=== PATIENT | female | born 1970 | race Caucasian/White ===

== ENCOUNTER 2019-07-12 09:31 | Observation (INO) ==
[2019-07-12] MEDS ORDERED: metroNIDAZOLE INJ 500 MG in PREMIX 1 EACH IV ONE (10:36)
[2019-07-12] MEDS ORDERED: LEVOFLOXACIN INJ 750 MG in PREMIX 1 EACH IV ONE (10:36)
[2019-07-12] MEDS ORDERED: ALBUTEROL/IPRATROPIUM 3 ML NEB RESP TX PRN (10:38)
[2019-07-12] MEDS ORDERED: ONDANSETRON 4 MG/2 ML VIAL IV PRN ×2 (10:38→13:07)
[2019-07-12] MEDS ORDERED: ACETAMINOPHEN 325 MG TABLET PO PRN (10:38)
[2019-07-12] MEDS ORDERED: PROMETHAZINE 25 MG/1 ML VIAL IM PRN (10:40)
[2019-07-12] MEDS ORDERED: diphenhydrAMINE 50 MG/1 ML VIAL IV PRN (10:40)
[2019-07-12 10:59] LABS: Basophils # 0.1 10*3/uL (0.0-0.2); Basophils % 0.5 % (0.0-0.8); Eosinophils # 0.1 10*3/uL (0.0-0.87); Hematocrit 40.4 VOL% (35.7-47.0); Hemoglobin 13.8 GM/DL (12.0-16.0); Immature Granulocytes % 0.4 %; Immature Granulocytes Absolute 0.05 #; Lymphocytes # 2.2 10*3/uL (1.4-4.0); Mean Corpuscular HGB Conc 34.2 GM/DL (32-36); Mean Corpuscular Volume 85.1 FL (87-102); Mean Platelet Volume 9.2 FL (9.6-12.0); Monocytes % 6.9 % (1.7-12.7); Neutrophils % 74.2 % (38.7-73.9); Platelet Count 387 T/CUMM (130-400); Red Blood Count 4.75 MC/CUMM (3.8-5.5); Red Cell Distribution Width 11.9 % (9.3-17.3)
[2019-07-12] MEDS ORDERED: LEVOFLOXACIN INJ 150 ML IV ONE (11:11)
[2019-07-12] MEDS ORDERED: DIAZEPAM 5 MG TABLET PO ONE (11:14)
[2019-07-12] MEDS ORDERED: FAMOTIDINE 20 MG TABLET PO ONE (11:14)
[2019-07-12] MEDS: LACTATED RINGERS 1,000 ML IV SCH ×3 (11:14→23:42)
[2019-07-12] MEDS ORDERED: SCOPOLAMINE 1.5 MG PATCH TRANSDERM ONE ×2 (11:14→11:20)
[2019-07-12] MEDS ORDERED: FAMOTIDINE 20 MG TABLET ONE (11:20)
[2019-07-12 11:21] LABS: Alanine Aminotransferase 19 U/L (13-56); Albumin 3.4 G/DL (3.4-5.0); Alkaline Phosphatase 78 U/L (45-117); Aspartate Amino Transferase 15 U/L (0-37); Bilirubin,Total < 0.39 MG/DL (0.2-1.0); Blood Urea Nitrogen 10 MG/DL (7-18); Estimated Glom Filtration Rate 84 ML/MIN; Glucose 88 MG/DL (74-106); Osmolality,Calculated 272.7 MOS/KG (273-304); Total Protein 8.1 G/DL (6.4-8.3)
[2019-07-12] MEDS ORDERED: DIAZEPAM 5 MG TABLET ONE (11:21)
[2019-07-12] MEDS ORDERED: propofoL 200 MG/20 ML VIAL IV ONE (12:34)
[2019-07-12] MEDS ORDERED: fentaNYL 100 MCG/2 ML VIAL ONE (12:34)
[2019-07-12] MEDS ORDERED: LIDOCAINE 2% 5 ML VIAL ONE (12:34)
[2019-07-12] MEDS ORDERED: SEVOFLURANE 1 UNIT/15 MINUTE INH ONE (12:34)
[2019-07-12] MEDS ORDERED: MIDAZOLAM 2 MG/2 ML VIAL ONE (12:34)
[2019-07-12] MEDS ORDERED: DEXAMETHASONE 4 MG/1 ML VIAL ONE (12:35)
[2019-07-12] MEDS ORDERED: ONDANSETRON 4 MG/2 ML VIAL ONE (12:35)
[2019-07-12] MEDS ORDERED: HYDROmorphone 2 MG/1 ML VIAL IV PRN (13:07)
[2019-07-12] MEDS: PIPERACILLIN/TAZOBACTAM 3,375 MG in SODIUM CHLORIDE 0.9% 100 ML IV SCH ×2 (14:06→23:40)
[2019-07-12] MEDS: DOCUSATE SODIUM 100 MG CAPSULE PO SCH (21:59)
[2019-07-13 05:25] LABS: Basophils % 0.2 % (0.0-0.8); Hematocrit 36.7 VOL% (35.7-47.0); Hemoglobin 12.3 GM/DL (12.0-16.0); Immature Granulocytes % 0.5 %; Immature Granulocytes Absolute 0.07 #; Lymphocytes # 1.4 10*3/uL (1.4-4.0); Lymphocytes % 9.3 % (21.3-54.2); Mean Corpuscular HGB Conc 33.5 GM/DL (32-36); Mean Corpuscular Volume 85.3 FL (87-102); Mean Platelet Volume 9.9 FL (9.6-12.0); Monocytes % 5.7 % (1.7-12.7); Neutrophils % 84.3 % (38.7-73.9); Platelet Count 378 T/CUMM (130-400); Red Cell Distribution Width 11.9 % (9.3-17.3); White Blood Count 14.6 T/CUMM (4-12)
[2019-07-13] MEDS: PIPERACILLIN/TAZOBACTAM 3,375 MG in SODIUM CHLORIDE 0.9% 100 ML IV SCH ×3 (06:45→23:27)
[2019-07-13] MEDS: KETOROLAC 15 MG/1 ML VIAL IV PRN ×2 (07:01→14:37)
[2019-07-13] MEDS: PANTOPRAZOLE 40 MG TABLET PO SCH (09:11)
[2019-07-13] MEDS: DOCUSATE SODIUM 100 MG CAPSULE PO SCH ×2 (09:11→20:54)
[2019-07-13] MEDS: LACTATED RINGERS 1,000 ML IV SCH ×2 (10:53→10:58)
[2019-07-13] MEDS: oxyCODONE/ACETAMINOPHEN 5-325 MG TABLET PO PRN (22:04)
[2019-07-14] MEDS: oxyCODONE/ACETAMINOPHEN 5-325 MG TABLET PO PRN (05:22)
[2019-07-14] MEDS: PIPERACILLIN/TAZOBACTAM 3,375 MG in SODIUM CHLORIDE 0.9% 100 ML IV SCH (06:30)
[2019-07-14] MEDS: DOCUSATE SODIUM 100 MG CAPSULE PO SCH (09:36)
[2019-07-14] MEDS: PANTOPRAZOLE 40 MG TABLET PO SCH (09:36)
[2019-07-14 10:03] LABS: Basophils # 0.1 10*3/uL (0.0-0.2); Basophils % 0.9 % (0.0-0.8); Eosinophils # 0.2 10*3/uL (0.0-0.87); Eosinophils % 2.2 % (0.00-10.9); Hematocrit 33.8 VOL% (35.7-47.0); Hemoglobin 11.4 GM/DL (12.0-16.0); Immature Granulocytes % 0.3 %; Immature Granulocytes Absolute 0.02 #; Lymphocytes # 2.5 10*3/uL (1.4-4.0); Lymphocytes % 32.6 % (21.3-54.2); Mean Corpuscular HGB Conc 33.7 GM/DL (32-36); Mean Platelet Volume 9.7 FL (9.6-12.0); Monocytes % 8.8 % (1.7-12.7); Neutrophils % 55.2 % (38.7-73.9); Platelet Count 345 T/CUMM (130-400); Red Blood Count 3.93 MC/CUMM (3.8-5.5); Red Cell Distribution Width 12.1 % (9.3-17.3); White Blood Count 7.7 T/CUMM (4-12)
[2019-07-14] MEDS: KETOROLAC 15 MG/1 ML VIAL IV PRN (10:57)
[2019-07-14 12:00] VITALS: BP 102/45
== END 2019-07-14 13:40 | disposition home or self-care (01) ==
LOC: N.ED 09:31 → N.EDINP 09:31 → N.3E 13:34
PROVIDERS: ADMIT Surgery; ATTEND Surgery